=== PATIENT | female | born 1960 | race Caucasian/White ===

== ENCOUNTER 2021-08-03 10:40 | Outpatient (REF) | payer BC, SELFPAY ==
--- NOTE | 2021-08-03 | PFT_ITS ---
Forced vital capacity is normal, 100%. FEV1 71%. FEV1/FVC ratio is 55. FEF 25-75 is 31%. MVV 61%. Post bronchodilator therapy, there is significant improvement in FEV1 and FEF 25-75. Total lung capacity 115, and residual volume 127%. These values indicate to hyperinflation and some degree of air trapping. Diffusion capacity 75%, normal. IMPRESSION: Moderately severe obstructive airway disorder. Good response to bronchodilator therapy. Findings consistent with asthma, chronic obstructive pulmonary disease overlap syndrome. Clinical correlation is recommended. Kristi Arriaza MD MSB/MODL / [phone]
== END 2021-08-03 10:41 | disposition home or self-care (01) ==
LOC: HO.RESP 10:40
PROVIDERS: PCP Internal Medicine; Visit Provider Surgery
DX: Z01.818 Encounter for other preprocedural examination (principal)
CPT/HCPCS: 94060; 94727; 94729